=== PATIENT | female | born 1940 | race American Indian/Alaskan Native ===

== ENCOUNTER 2018-05-29 06:49 | Day surgery (SDC) | payer MEDICARE ==
[2018-04-13 13:30] VITALS: BMI 28.8
[2018-05-29 07:28] LABS: BASO # 0.01 K/mm3 (0.0-2.0); BASO % 0.2 % (0.0-3.0); EOS # 0.2 (0.0-0.7); GRAN # 2.74 (1.4-6.5); GRAN % 52.7 % (50.0-68.0); HEMOGLOBIN 10.2 g/dL (12.0-16.0); LYMPH # 1.8 (1.2-3.4); LYMPH % 35.4 % (22.0-35.0); MEAN CELL VOLUME 70.6 fl (80.0-105.0); MEAN CORPUSCULAR HEMOGLOBIN 22.1 pg (25.0-35.0); MEAN CORPUSCULAR HGB CONC 31.3 g/dl (31.0-37.0); MEAN PLATELET VOLUME 10.3 fl (7.0-11.0); MONO # 0.4 (0.1-0.6); MONO % 7.7 % (1.0-6.0); RBC 4.62 10^6/uL (3.5-6.1); RED CELL DISTRIBUTION WIDTH 15.4 % (11.5-14.5); WHITE BLOOD COUNT 5.2 10^3/uL (4.5-11.0)
[2018-05-29 07:34] LABS: INR 1.03; PARTIAL THROMBOPLASTIN TIME 54.8 Seconds (25.1-36.5); PROTHROMBIN TIME 11.9 SECONDS (9.4-12.5)
[2018-05-29 07:35] LABS: BLOOD UREA NITROGEN 27 mg/dL (7-21); CALCIUM 9.8 mg/dL (8.4-10.5); GFR NON-AFRICAN AMERICAN 53; HDL CHOLESTEROL 26 mg/dL (29-60)
[2018-05-29] MEDS ORDERED: Famotidine 20mg/50ml 20 MG/50 ML BAG IVPB ONE (07:38)
[2018-05-29] MEDS ORDERED: DiphenhydrAMINE 50 mg/ml Inj ONE (07:38)
[2018-05-29 07:45] LABS: LDL CHOLESTEROL 72 mg/dL (0-129)
[2018-05-29] MEDS ORDERED: Iohexol 350mgl/ml 50 ML ONE (08:50)
[2018-05-29] MEDS ORDERED: Lidocaine 2% Inj (20ml) ONE (08:50)
[2018-05-29] MEDS ORDERED: Iodixanol 320 MG/ML 200 ML BOTTLE IV ONE (08:50)
[2018-05-29] MEDS ORDERED: Iodixanol 320 MG/ML 100 ML BOTTLE IV ONE (08:50)
[2018-05-29] MEDS ORDERED: Nitroglycerin 50mg in D5W 50 MG/250 ML BOTTLE IV ONE (08:51)
[2018-05-29] MEDS ORDERED: Midazolam 2 MG/2 ML VIAL ONE ×2 (09:32→09:42)
[2018-05-29] MEDS ORDERED: Sodium Chloride 0.9% 1,000 ML IV SCH (10:15)
--- NOTE | 2018-05-29 12:47 | CARDCATH ---
PROCEDURE DATE: 05/29/2018 HISTORY: The patient in the 77-year-old woman with history of hypertension and diabetes mellitus and hypercholesterolemia with a history of PTCA in the past who presents with exertional shortness of breath progressing to symptoms between one to two blocks. The patient's stress test earlier this year was unremarkable. Because of her ongoing symptoms, cardiac catheterization was recommended. PROCEDURE: Left heart catheterization with coronary aortography and left ventriculogram followed by percutaneous transluminal coronary angioplasty and stent of the circumflex lesion. The right femoral artery was cannulated with a 6-Slovak sheath. There were no complications. I performed moderate sedation which included the presence of an independent trained observer that assisted in monitoring the patient's level of consciousness and physiologic status. After administration of Versed and fentanyl, my intra service time was 30 minutes. The findings on catheterization revealed a right dominant circulation. The RCA was occluded in its proximal portion which is chronic. The left main artery was unremarkable. The LAD revealed a patent stent in its midportion. There is a small third diagonal vessel that is 80-90% stenosis. The circumflex artery and obtuse marginal branch revealed diffuse atherosclerosis. The second branch of the obtuse marginal branch revealed a 80-90% stenosis. LV function was preserved with an EF of 50-55%. The patient started on intravenous Angiomax under fluoroscopic guide, the guiding catheter was placed in the ostium of the left main artery and 0.014 ATW wire was used to cross the lesion in the OM. A 2.25 x 12 mm drug-eluting stent was placed and deployed at 12 ounces of pressure. Repeat coronary artery revealed an excellent result. No residual stenosis and CALLY III flow. Angio-Seal was used to close the femoral artery site. The patient tolerated the procedure well. In summary, the procedure was successful PTCA and stent of an obtuse marginal branch lesion with a drug-eluting stent. Cardiac catheterization revealed a chronically occluded RCA and new lesion in the OM. In addition, the LAD stent was patent. LV function is preserved. Given these findings, the patient will need to undergo a strict cardiac risk reduction program. Continue on aspirin and Plavix with Plavix for at least a year. Waylon Vasquez MD
--- NOTE | 2018-05-29 13:24 | HP ---
DATE OF EXAM: 05/29/2018 HISTORY OF PRESENT ILLNESS: The patient is a 77-year-old who was found to have abnormal stress test done on 04/13/2018. She was brought electively for cardiac cath and had circumflex stented, being placed in observation. Denies any chest pain or shortness of breath. No nausea, vomiting or diarrhea. No abdominal pain. PAST MEDICAL HISTORY: Significant for; 1. Hypertension. 2. Plt-gzeywco-ywdjsbtqf diabetes. 3. Hyperlipidemia. 4. History of diabetic neuropathy. 5. Spinal stenosis. 6. Bilateral carpal tunnel syndrome. ALLERGIES: SHE IS ALLERGIC TO SHELLFISH. PAST SURGICAL HISTORY: Significant for bilateral cataract extraction. MEDICATIONS: At home, the patient is on valsartan 320 daily, Plavix 75 daily, diltiazem 120 daily, tramadol one tablet every six hours as needed, aspirin 81 daily, hydralazine 25 every six hours, simvastatin 10 mg daily. SOCIAL HISTORY: She lives by herself. Denies smoking, drinking or alcohol use. PHYSICAL EXAMINATION GENERAL: The patient is awake and alert. Able to communicate. VITAL SIGNS: The patient is afebrile, pulse 66, respirations 18, blood pressure 154/69. LUNGS: Bilateral fair airflow. No rhonchi or crackle. HEART: S1, S2 audible. ABDOMEN: Soft, nontender. No rebound, no guarding. NEUROLOGIC: The patient is awake, alert, oriented. Able to communicate. EXTREMITIES: Right groin has a pressure bandage. LABORATORY DATA: WBC 5.2, hemoglobin 10, hematocrit 32.6, platelet of 222. PT 11.9, INR 1.03. Chemistry; sodium 144, potassium 4.4, chloride 111, CO2 of 23, BUN 27, creatinine 1.0, blood sugar 158. ASSESSMENT: 1. Status post circumflex angioplasty. 2. History of coronary artery disease. 3. Hypertension. 4. Hyperlipidemia. 5. Yxx-takfkkv-wfznepnhj diabetes. PLAN: So, plan is the patient will be placed in observation. We will monitor blood sugar. We will resume her usual medication. We will monitor her closely and possible discharge in a.m. if the patient remains stable. Pau Cabello MD
[2018-05-29] MEDS: Insulin Lispro (humaLOG) MIX 75/25(10 ml) SC SCH (17:53)
--- NOTE | 2018-05-29 19:38 | CARD ---
APPROVED REPORT Date of service: 05/29/2018 EKG Measurement Heart [id number] <Conclusion> AV sequential or dual chamber electronic pacemaker
[2018-05-30 07:28] LABS: BLOOD UREA NITROGEN 23 mg/dL (7-21); CALCIUM 9.4 mg/dL (8.4-10.5); GFR NON-AFRICAN AMERICAN > 60
[2018-05-30 08:00] LABS: BASO # 0.02 K/mm3 (0.0-2.0); BASO % 0.3 % (0.0-3.0); EOS % 0.4 % (1.5-5.0); GRAN # 5.29 (1.4-6.5); GRAN % 69.3 % (50.0-68.0); HEMOGLOBIN 9.3 g/dL (12.0-16.0); LYMPH # 1.6 (1.2-3.4); LYMPH % 21.2 % (22.0-35.0); MEAN CELL VOLUME 70.3 fl (80.0-105.0); MEAN CORPUSCULAR HEMOGLOBIN 22.3 pg (25.0-35.0); MEAN CORPUSCULAR HGB CONC 31.7 g/dl (31.0-37.0); MEAN PLATELET VOLUME 11.9 fl (7.0-11.0); MONO # 0.7 (0.1-0.6); MONO % 8.8 % (1.0-6.0); RBC 4.17 10^6/uL (3.5-6.1); RED CELL DISTRIBUTION WIDTH 15.6 % (11.5-14.5); WHITE BLOOD COUNT 7.6 10^3/uL (4.5-11.0)
[2018-05-30] MEDS: Insulin Lispro (humaLOG) MIX 75/25(10 ml) SC SCH (10:32)
[2018-05-30 10:33] VITALS: PULSE 74
[2018-05-30] MEDS ORDERED: Insulin Lispro (humaLOG) MEDIUM Coverage SC SCH (12:00)
[2018-05-30 12:12] VITALS: BP 154/76; RESP 17; TEMP 98.3
[2018-05-30 12:51] VITALS: O2SAT 99
--- NOTE | 2018-05-30 13:02 | PN ---
DATE: 05/30/2018 REASON FOR DICTATION: Covering for Dr. Waylon Vasquez REASON FOR CONSULTATION: History of CAD, status post PTCA. SUBJECTIVE: The patient denies any chest pain or shortness of breath, or any palpitation. PHYSICAL EXAMINATION: GENERAL: Not in apparent distress, sitting at the bedside having the breakfast. Denies any chest pain. VITAL SIGNS: Temperature afebrile, heart rate 60, blood pressure 122/59. HEENT: PERRLA. Extraocular muscles intact. NECK: Supple. No carotid bruits or thyromegaly. CHEST: Clear to auscultation. HEART: S1 and S2 regular. ABDOMEN: Soft. EXTREMITIES: Clubbing and cyanosis negative. LABORATORY DATA: Blood workup as follows; WBC 7.6, hemoglobin 9.7, hematocrit 29.3, platelet count 209. Chemistry shows sodium 141, potassium 4, chloride 110, carbon dioxide 24, anion gap of 4, BUN 23, and creatinine 0.9 and glucose 146. IMPRESSION: This is a 77-year-old female with past medical history significant for coronary artery disease, status post percutaneous transluminal coronary angioplasty in the past, who underwent yesterday cardiac catheterization and a stent in left anterior descending as well as stent in the obtuse marginal 1. Right coronary artery is totally occluded. Left ventricular ejection fraction of 55%. Right groin appears okay. Electrolytes are within zhane limits. RECOMMENDATION: The patient is okay to discharge. Continue aspirin, continue atorvastatin, continue metoprolol, continue Plavix. Follow up with Dr. Vasquez. Thank you ____ for providing us the opportunity in taking care of the patient, Vicky Gleason. Upon discharge the patient will be followed up with Dr. Vasquez in his office. Edmundo Suh MD
--- NOTE | 2018-05-30 14:53 | DS ---
HISTORY OF PRESENT ILLNESS: Patient is 77 years old seen and examined, doing well. Eating and tolerating. No nausea, vomiting. No diarrhea. Anxious to go home. Bilateral leg swelling, ambulatory. PHYSICAL EXAMINATION: VITAL SIGNS: She is afebrile, pulse 68, respirations 20 and blood pressure 145/77. LUNGS: Bilateral fair airflow. No rhonchi or crackle. HEART: S1 and S2 audible. ABDOMEN: Soft, nontender. No rebound. No guarding. NEUROLOGICAL: She is awake, alert, oriented, communicative. LABORATORY DATA: WBC is 7.6, hemoglobin 9.3, hematocrit 29.3 and platelets 209. Chemistry: Sodium 141, potassium 4.1, chloride 110, CO2 of 24, BUN 23, creatinine 0.9, blood sugar is 134. ASSESSMENT: 1. Status post cardiac catheterization and status post angioplasty for obtuse marginal branch. Had drug-eluted stent. Her left anterior descending stent was found to be open. 2. Hypertension. 3. Coronary artery disease. 4. Hyperlipidemia. 5. Gae-nkoqmku-oqvsigpqa diabetes. 6. History of spinal stenosis. PLAN: The patient is being discharged home. She is clinically and hemodynamically stable. She will continue her medications including Lyrica 50 mg at bedtime, Plavix 75 daily, metoprolol 25 daily, atorvastatin 20 mg daily, aspirin 81 daily and she is on valsartan. We will follow up in the office. Pau Cabello MD
--- NOTE | 2018-05-30 18:26 | CARD ---
APPROVED REPORT Date of service: 05/30/2018 EKG Measurement Heart [id number] <Conclusion> AV sequential or dual chamber electronic pacemaker
== END 2018-05-30 14:26 | disposition home or self-care (01) ==
LOC: CATH 06:49 → 2RSO 10:30 → CATH 05-30 14:26
PROVIDERS: ATTEND Internal Medicine Cardiovascular Disease
DX: I25.10 Atherosclerotic heart disease of native coronary artery without angina pectoris (principal); I10 Essential (primary) hypertension; E78.5 Hyperlipidemia, unspecified; E11.40 Type 2 diabetes mellitus with diabetic neuropathy, unspecified; E78.00 Pure hypercholesterolemia, unspecified; G56.03 Carpal tunnel syndrome, bilateral upper limbs; I25.82 Chronic total occlusion of coronary artery; Z79.82 Long term (current) use of aspirin; Z79.899 Other long term (current) drug therapy; Z98.61 Coronary angioplasty status
CPT/HCPCS: 36415 ×2; 80048 ×2; 80061; 82948 ×2; 85025 ×2; 85610; 85730; 86850; 86900; 93005 ×2; 93458; 99152; 99153; C1760; C1769 ×2; C1874; C1887; C2629; C9600; J0583; J1200; J1644; J2250; J2930; J3010; J7030; Q9966; Q9967

== ENCOUNTER 2018-07-06 09:24 | Outpatient (CLI) | payer MEDICARE | END 2018-07-06 09:25 | disposition home or self-care (01) | LOC: RAD 09:24 ==

== ENCOUNTER 2018-08-27 13:38 | Outpatient (CLI) | payer MEDICARE | END 2018-08-27 13:39 | disposition home or self-care (01) | LOC: RAD 13:38 ==